=== PATIENT | female | born 1990 | race American Indian/Alaskan Native ===

== ENCOUNTER 2020-09-13 09:07 | Emergency (ER) | payer MEDICAID, OTHER ==
[2020-09-13 09:43] VITALS: BP 133/88
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
[2020-09-13] MEDS ORDERED: IBUPROFEN 800 MG TAB PO ONE (11:01)
== END 2020-09-13 11:07 | disposition home or self-care (01) ==
LOC: ED 09:07
DX: M25.571 Pain in right ankle and joints of right foot (principal); F12.10 Cannabis abuse, uncomplicated; Z98.890 Other specified postprocedural states; Z79.899 Other long term (current) drug therapy; V49.59XA Passenger injured in collision with other motor vehicles in traffic accident, initial encounter; Y93.89 Activity, other specified; Y92.410 Unspecified street and highway as the place of occurrence of the external cause; Y99.8 Other external cause status